=== PATIENT | male | born 1980 | race Caucasian/White ===

== ENCOUNTER 2025-07-04 14:45 | Outpatient (RCR) | payer OTHER, SELFPAY ==
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
--- NOTE | 2025-06-02 14:32 | OPREHPOC ---
Outpatient Therapy Plan of Care This is a Multidisciplinary Plan of Care that may contain components documented by all disciplines (PT, OT, and ST.) OT Problem 1 OT Problem #1 Knowledge Deficit OT Goal 1 Goal / Goal Update Pt. will demonstrate independence in HEP Target Visit 8 OT Problem 2 OT Problem #2 Impaired Coordination OT Goal 1 Goal / Goal Update Pt. will demonstrate increased bilateral coordination as demonstrated by L UE 9-hole peg test < 20 seconds, and reporting minimal difficulty with L UE proprioceptive awareness while using keyboard for work Target Visit 8 OT Problem 3 OT Problem #3 Impaired Strength OT Goal 1 Goal / Goal Update Increase functional strength of L UE by 15% as demonstrated by home planning consultant salesperson strength and pinch home planning consultant salesperson tests Target Visit 8
--- NOTE | 2025-06-02 14:59 | OPREHPOC ---
Outpatient Therapy Plan of Care This is a Multidisciplinary Plan of Care that may contain components documented by all disciplines (PT, OT, and ST.) OT Problem 1 OT Problem #1 Knowledge Deficit OT Goal 1 Goal / Goal Update Pt. will demonstrate independence in HEP Target Visit 8 OT Problem 2 OT Problem #2 Impaired Coordination OT Goal 1 Goal / Goal Update Pt. will demonstrate increased bilateral coordination as demonstrated by L UE 9-hole peg test < 20 seconds, and reporting minimal difficulty with L UE proprioceptive awareness while using keyboard for work Target Visit 8 OT Problem 3 OT Problem #3 Impaired Strength OT Goal 1 Goal / Goal Update Increase functional strength of L UE by 15% as demonstrated by rubber extrusion machine operator strength and pinch rubber extrusion machine operator tests Target Visit [address] Problem #[address] Goal 1 Goal / Goal Update The patient will participate in home programming to improve carry over/generalization of skills to the home environment. Target Visit [address] Problem #[address] Goal 1 Goal / Goal Update Dysarthria: 1. The patient will produce phrases/sentences with 85% intelligibility using compensatory techniques and minimal cues. 2. The patient will produce 5-7 complex conversational speech exchanges with 85% intelligibility using compensatory techniques and minimal cues. 3. The patient will complete oral motor exercises 85% minimal cues 4. The patient will be compliant with a HEP 90% Target Visit [address] Problem #[address] Goal 1 Goal / Goal Update Thought Organization: 1. The patient will complete complex thought organization for (categorization, sequencing, reasoning) with 85% and minimal cues. Target Visit 6
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
== END 2025-07-07 08:33 | disposition home or self-care (01) ==
LOC: ANHOT 14:45
DX: I63.511 Cerebral infarction due to unspecified occlusion or stenosis of right middle cerebral artery (principal); I77.71 Dissection of carotid artery; S02.2XXA Fracture of nasal bones, initial encounter for closed fracture; S02.85XA Fracture of orbit, unspecified, initial encounter for closed fracture; V19.9XXA Pedal cyclist (driver) (passenger) injured in unspecified traffic accident, initial encounter
CPT/HCPCS: 92507; 92523; 97110; 97112; 97161; 97165; 97530